=== PATIENT | female | born 1960 | race Two or more races ===

== ENCOUNTER → 2016-12-23 | Outpatient (REF) | payer BC | LOC: M SMT 12:32 | PROVIDERS: ATTEND Nurse Practitioner Women's Health | DX: R31.0 Gross hematuria (principal) ==

== ENCOUNTER → 2016-12-30 | Outpatient (CLI) | payer BC ==
[~2016-12-30] MED LIST: ISOVUE-370 76% 100ML VIAL (Q9967) As Ordered ONE
--- NOTE | 2016-12-31 08:23 | REP ---
Clinical: Gross hematuria. Technique: Axial precontrast, contrast enhanced, and delayed images of the abdomen and pelvis using 100 ml Isovue 370 intravenous contrast material with coronal and sagittal re-formations and MIP CT urograms. Findings: Evaluation of the urinary tract system demonstrates appropriate symmetric renal enhancement and excretion patterns to the collecting system. Two subcentimeter left renal cysts are identified. There is no evidence for for ureterolithiasis, hydroureteronephrosis, perinephric stranding or mass lesion. The bladder is normal in appearance. Liver, spleen, pancreas, gallbladder, and bilateral adrenal glands are normal. The enteric system is without obstruction or acute inflammatory process. The pelvis demonstrates normal bladder and age-appropriate uterus/adnexa. No free air. No free fluid. No adenopathy. Vasculature is normal. Musculoskeletal structures are intact. Impression: 1. With the exception of two subcentimeter left renal cysts, the urinary tract system is normal. 2. No further acute intra-abdominal or pelvic pathology appreciated. Signed by Denys Thomas MD 12/31/2016 08:16 A
== END ==
LOC: M RAD 16:55
PROVIDERS: ATTEND Nurse Practitioner Women's Health
DX: R31.0 Gross hematuria (principal)